=== PATIENT | female | born 1930 | race Caucasian/White ===

== ENCOUNTER → 2016-11-09 | Outpatient (CLI) | payer MEDICARE, OTHER ==
[~2016-11-09] MED LIST: ALBUTEROL2.5 MG/31 INH; ARTIFICIAL TEAR15 ML OPHTH; ASPIR-TRIN325 MG PO; ATARAX25 MG PO; CALCIUM 500 +1 EAC2 PO; CEFTIN250 MG PO; DILANTIN100 MG PO; DILANTIN50 MG PO; DULCOLAX10 MG R; DURAGESIC1 EAC1 TRANS; GUAIFENESIN ER600 MG PO; K-TAB ER20 MEQ PO; LACRI-LUBE) (D1 TUBE OPHTH; LEXAPRO10 MG PO; MELATONIN1 MG PO; MILK OF MA400 MG/5 M PO; MIRALAX17 GM PO; MUCUS ER600 MG PO; NORCO 5-325 MG1 TAB PO; NORCO 5-325 TA1 EACH PO; NORVASC5 MG PO; PRESERVISION A1 EAC2 PO; SYMBICORT 16010.2 GM INH; SYNTHROID112 MCG PO; TESSALON PERLE100 MG PO; TOPROL XL100 MG PO; TYLENOL325 MG PO; ULTRAM50 MG PO; ZOCOR40 MG PO; ZYRTEC10 M3 PO
== END | disposition disaster alternative care site (69) ==
LOC: LJOHN2 10:48
DX: G40.909 Epilepsy, unspecified, not intractable, without status epilepticus (principal); E03.9 Hypothyroidism, unspecified